=== PATIENT | female | born 1950 | race Caucasian/White ===

== ENCOUNTER → 2016-07-25 | Day surgery (SDC) | payer MEDICARE, BC ==
[~2016-07-25] VITALS: Ht 157.5 cm; Wt 64.5 kg
[~2016-07-25] MED LIST: *RESP: ALBUTEROL 2.5 MG/3 ML NEB (PRN) PERIprocedural Use ONLY NEB ONE; ACETAMINOPHEN 1000 MG/100 ML VIAL IV ONE; ACETAMINOPHEN/HYDROcodone 325 MG/5 MG TAB PO PRN; ALLO100T PO; ALPR1 PO; ALPR1TAB3 PO; BIOT10TA PO; BUPIVACAINE HCL PF 0.5% 30 ML VIAL ONE; BUPIVACAINE/EPINEPHRINE 0.25% 50 ML VIAL INFIL ONE; CHLORHEXIDINE GLUCONATE 4% SOLN 120 ML BTL TOP SCH; CLINDAMYCIN 600 MG/NS 100 ML IV ONE; ECOT325T PO; ENOX40P SQ; FENO160T PO; GENTAMICIN SULFATE 80 MG/2 ML VIAL IRRIGATION ONE; GENTAMICIN SULFATE 80 MG/2 ML VIAL ONE; HYDR-3583 PO; INSULIN HUMAN REGULAR 1,000 UNITS/10 ML VIAL SQ PRN; LACTATED RINGER'S 1000 ML IV SCH; LIPI20TA PO; METOPROLOL TARTRATE 25 MG TAB PO PRN; MIDAZOLAM HCL 2 MG/2 ML VIAL ONE; MILK175C6 PO; MORPHINE SULFATE 4 MG/ML INJ IV PUSH PRN; MORPHINE SULFATE 8 MG/ML INJ IV PUSH PRN; MULT-135 PO; NORC5TAB PO; OMEG5CAP PO; ONDANSETRON HCL 4 MG/2 ML VIAL IV PRN; ONDANSETRON HCL 4 MG/2 ML VIAL IV PUSH ONE; PERC10TA27 PO; POVIDONE IODINE 7.5% SCRUB 118 ML BOTTLE TOP SCH; PROPOFOL 200 MG/20 ML AMP IV ONE; RESP: ALBUTEROL 2.5 MG/3 ML NEB (PRN) ONE; SERT50 PO; SODIUM CHLORID 0.9% 500 ML IV SCH; SODIUM CHLORIDE 0.9% FLUSH 5 ML FLUSH IVF PRN; SODIUM CHLORIDE 0.9% FLUSH 5 ML FLUSH IVF SCH; SODIUM CHLORIDE 0.9% INJ 100 ML ONE; SYMB160A INH; VANCOMYCIN 1000 MG/NS 250 ML (for <70 kg) IV SCH; ZOLO50TA PO
[2016-07-25 11:58] VITALS: BP 120/71; PULSE 72; RESP 16; TEMP 98; O2SAT 98
--- NOTE | 2016-07-25 14:24 | PD.OP ---
cc: Harvey Ferrari MD Operative Report Date of Surgery: Jul 25, 2016 Preoperative Diagnosis: Left distal radius fracture, intra-articular three-part. Left distal ulnar shaft fracture, angulated and displaced. Postoperative Diagnosis: Same Procedure: Left distal radius fracture open reduction and intra-articular of three-part fracture. Left forearm closed reduction of distal ulnar shaft fracture. Anesthesia: Gen. Surgeon: Harvey Ferrari Herbicide Sprayer(s): TOM Gonzalez The surgical procedure was assisted by my Advanced Registered Nurse Practitioner. My REIMBURSEMENT CONSULTANT presence was necessary throughout this case for the manipulation and positioning of the surgical extremity. My REIMBURSEMENT CONSULTANT was assisting me throughout the duration of this procedure. The skill set of an Advance Registered Nurse Practitioner was medically necessary to complete this procedure. During the surgical case, the perioperative tech was working at the back table and the Advance Registered Nurse Practitioner was directly assisting me. Operation and Findings: Tourniquet time: 22 minutes at 250 mmHg of pressure Estimated blood loss: 15 cc The patient received intravenous vancomycin and clindamycin. After the appropriate anesthesia was administered, the patient's arm was prepped and draped in the usual sterile fashion. Local anesthetic was given, and the arm was exsanguinated. The tourniquet was raised to 250 mmHg of pressure. We made a standard incision over the volar aspect of the forearm. We then dissected through the flexor carpi radialis sub- sheath. The pronator quadratus was reflected. We now visualized the distal radius fracture very well. The distal radius fracture was anatomically reduced both visually and via fluoroscopy. Additionally we close reduced the distal ulnar shaft fracture. The distal ulnar shaft fracture was minimally angulated and minimally displaced but much improved in position. We provisionally held the distal radius fracture reduced and then applied a [employer] precontoured distal radius plate into the appropriate position. The plate was secured to the distal radius first with the sliding screw hole. This was then followed by locking screws distally and proximally. We took final fluoroscopic imaging of the wrist. We found no intra-articular penetration of the screws. The patient had full range of motion of the wrist with no crepitus. The distal ulnar shaft fracture remained in good position. We therefore decided to continue with closed management of this fracture. The tourniquet was released and hemostasis was achieved. The patient had a 2+ radial pulse. We irrigated the incision thoroughly. We then closed skin with 2 -0 Vicryl followed by 3-0 nylon. The arm was dressed and a volar splint was applied. The postoperative plan is to start delayed range of motion of the wrist. Harvey Ferrari MD Jul 25, 2016 14:24
--- NOTE | 2016-07-25 14:55 | EKG ---
Date Performed: 07/25/2016 Time Performed: 11:58:21 PTAGE: 65 years EKG: Sinus rhythm MARKED LEFT AXIS DEVIATION LOW QRS VOLTAGE IN PRECORDIAL LEADS POSSIBLE RIGHT VENTRICULAR CONDUCTION DELAY ABNORMAL ECG NO PREVIOUS TRACING DOCTOR: Elaine Dominguez Interpretating Date/Time 07/25/2016 14:52:42
--- NOTE | 2016-07-25 15:55 | RADRPT ---
EXAM DATE/TIME: 07/25/2016 14:07 [facility] COMPARISON: No previous studies available for comparison. INDICATIONS : Post-op ORIF left distal radius fracture. MEDICAL HISTORY : None. SURGICAL HISTORY : None. ENCOUNTER: Subsequent ACUITY: 1 day PAIN SCORE: Non-responsive. LOCATION: Left upper extremity FINDINGS: Plate with screws is seen bridging the fracture of the distal radius. Alignment is anatomic. Again seen is the ulnar fracture. Portion of the carpus visualized appears intact. CONCLUSION: Anatomic alignment. Lico Cabrera MD FACR on July 25, 2016 at 14:37 Board Certified Radiologist. This report was verified electronically.
[2016-07-25 16:31] VITALS: BP 128/78; PULSE 88; RESP 16; TEMP 98; O2SAT 97
== END | disposition home or self-care (01) ==
LOC: HSDC 10:45
PROVIDERS: ATTEND Orthopaedic Surgery
DX: S52.502A Unspecified fracture of the lower end of left radius, initial encounter for closed fracture (principal); S52.202A Unspecified fracture of shaft of left ulna, initial encounter for closed fracture; R94.31 Abnormal electrocardiogram [ECG] [EKG]; J44.9 Chronic obstructive pulmonary disease, unspecified; W19.XXXA Unspecified fall, initial encounter
CPT/HCPCS: 01830; 25535; 25609; 73110; 76000; 93005; 94664; C1713; J0131; J1580; J2250; J2405; J3010; J3370; J7050; J7613